=== PATIENT | male | born 1970 | race Two or more races ===

== ENCOUNTER 2017-08-23 06:35 | Emergency (ER) | payer OTHER ==
[2017-08-23] MEDS ORDERED: Ondansetron INJ* 2 MG/ML VIAL IV ONE (07:12)
[2017-08-23] MEDS ORDERED: NS 0.9% 1000 ML* 1,000 ML IV ONE ×2 (07:12→10:43)
[2017-08-23] MEDS ORDERED: Iohexol 300* (CONTRAST) 10 ML SDV IV ONE (08:12)
[2017-08-23 08:17] LABS: ABS Basophils 0 10^3/ul (0-0.2); ABS Eosinophils 0.4 10^3/ul (0-0.6); ABS Lymphocytes 1.4 10^3/ul (1.0-4.8); ABS Monocytes 0.8 10^3/ul (0-0.8); ABS Neutrophils 8.2 10^3/ul (1.5-7.7); ABS Nucleated RBC 0 10^3/ul; Eosinophil % 3.9 % (0-6); Hematocrit 45 % (42-52); Hemoglobin 15.3 g/dl (14.0-18.0); Mean Corpuscular HGB Conc 34 g/dl (31-36); Mean Corpuscular Hemoglobin 29 pg (27-31); Mean Corpuscular Volume 86 fL (80-94); Mean Platelet Volume 7.6 um3 (7.4-10.4); Nucleated Red Blood Cells % 0.1; Platelet Count 254 10^3/ul (150-450); Red Blood Count 5.19 10^6/ul (4.0-5.4); Red Cell Distribution Width 14 % (10.5-15); White Blood Count 10.9 10^3/ul (3.5-10.8)
[2017-08-23 08:35] LABS: EGFR Non-African American 75.1 (>60)
--- NOTE | 2017-08-23 08:52 | RAD ---
INDICATION: Generalized abdominal pain with nausea, vomiting, diarrhea for 2 days. Fever. COMPARISON: May 19, 2017 CT TECHNIQUE: Multidetector CT images were obtained from the lung bases to the ischial tuberosities with 93 mL Omnipaque 300 IV and oral contrast. Multiplanar reformation. REPORT: Unremarkable visualized inferior thorax. The liver, gallbladder, pancreas, and spleen are unremarkable. Negative for CT abnormality of the upper GI or small bowel. Unremarkable infra cecal appendix most conspicuous on coronal reformatted images 37-56 of 90. Enteric contrast extends to the rectum. No colonic mural thickening or perienteric inflammatory change evident. Negative for ascites, free air, hernias. Normal adrenal glands. Unremarkable kidneys with symmetric nephrograms and pyelograms. Unremarkable nondilated ureters and urinary bladder. Symmetric seminal vesicles. Negative for lymphadenopathy. Normal diameter abdominal aorta and iliac arteries with minimal atherosclerotic plaque. Incomplete distention of the IVC indicating lower volume state. Negative for suspicious osseous lesions. IMPRESSION: 1. Normal appendix documented. 2. Enteric contrast extends to the rectum. No mural thickening or perienteric inflammatory change of the alimentary tract evident. 3. Incomplete distention of the IVC indicating lower volume state.
[2017-08-23] MEDS ORDERED: Potassium Chlor TAB* 20 MEQ TAB.ER PO ONE (10:59)
[2017-08-23] MEDS ORDERED: Magnesium Oxide TAB* 400 MG PO ONE (10:59)
[2017-08-23 11:02] LABS: Urine Appearance Clear; Urine Blood 2+ (Negative); Urine Color Colorless; Urine Ketones Negative (Negative); Urine Protein Negative (Negative); Urine Specific Gravity 1.001 (1.010-1.030); Urine Urobilinogen Negative (Negative)
[2017-08-23 11:49] VITALS: BP 122/84
--- NOTE | 2017-08-23 20:56 | ED ---
Vin Lux Angela, scribed for Francisco Javier Hankins MD on 08/23/17 at 0723 . GI/ HPI - HPI Summary HPI Summary: This pt is a 47 y/o male presenting to [facility] c/o abd pain, nausea, vomiting, and diarrhea for the past 2 days. He describes diffuse abdominal pain and diarrhea as watery and nonbloody. Pt reports he did not eat anything unusual 2 days ago. He denies traveling out of the country in the last few weeks. No recent antibiotic use. Pt denies sick contacts. Denies any PMHx. - History of Current Complaint Chief Complaint: EDAbdPain Time Seen by Provider: 08/23/17 07:12 Stated Complaint: FEVER, DIARRHEA Hx Obtained From: Patient Onset/Duration: Started Days Ago, Still Present Timing: Lasting Days Current Severity: Mild Pain Intensity: 3 Location of Pain: Diffuse Associated Signs and Symptoms: Positive: Nausea, Vomiting, Diarrhea. Negative: Cough, Chest Pain Aggravating Factor(s): Nothing Alleviating Factor(s): Nothing - Allergy/Home Medications Allergies/Adverse Reactions: Allergies Allergy/AdvReac Type Severity Reaction Status Date / Time No Known Allergies Allergy Verified 01/02/14 19:37 Home Medications: Home Medications Acetaminophen TAB* [Tylenol TAB*] 325 - 650 mg PO Q6H PRN 08/23/17 [History Confirmed 08/23/17] Cholecalciferol TAB* [Vitamin D TAB*] 50,000 unit PO MONTHLY 08/23/17 [History Confirmed 08/23/17] PMH/Surg Hx/FS Hx/Imm Hx Endocrine/Hematology History: Denies: Hx Diabetes, Hx Thyroid Disease Cardiovascular History: Denies: Hx Congestive Heart Failure, Hx Hypertension, Other Cardiovascular Problems/Disorders Respiratory History: Denies: Hx Asthma, Hx Chronic Obstructive Pulmonary Disease (COPD) GI History: Denies: Hx Ulcer - Surgical History Surgery Procedure, Year, and Place: denies Infectious Disease History: No Infectious Disease History: Reports: Hx Tuberculosis Denies: Hx Hepatitis, Hx Human Immunodeficiency Virus (HIV), Traveled Outside the [place] in Last 30 Days - Family History Family History: No FHx of bowel problems - Social History Alcohol Use: None Substance Use Type: Reports: None Smoking Status (MU): Light Every Day Tobacco Smoker Type: Cigarettes Review of Systems Negative: Fever ENT: Negative Negative: Chest Pain Negative: Shortness Of Breath Positive: Abdominal Pain, Vomiting, Diarrhea, Nausea Skin: Negative Neurological: Negative All Other Systems Reviewed And Are Negative: Yes Physical Exam - Summary Physical Exam Summary: VITAL SIGNS: Reviewed. GENERAL: Patient is a well-developed and nourished male who is lying comfortable in the stretcher. Patient is not in any acute respiratory distress. HEAD AND FACE: No signs of trauma. No ecchymosis, hematomas or skull depressions. No sinus tenderness. EYES: PERRLA, EOMI x 2, No injected conjunctiva, no nystagmus. EARS: Hearing grossly intact. Ear canals and tympanic membranes are within normal limits. MOUTH: Oropharynx within normal limits. NECK: Supple, trachea is midline, no adenopathy, no JVD, no carotid bruit, no c- spine tenderness, neck with full ROM. CHEST: Symmetric, no tenderness at palpation LUNGS: Clear to auscultation bilaterally. No wheezing or crackles. CVS: Regular rate and rhythm, S1 and S2 present, no murmurs or gallops appreciated. ABDOMEN: Soft. Diffuse tenderness. No rebound or guarding. No signs of distention. No masses palpated. Bowel sounds are normal. EXTREMITIES: FROM in all major joints, no edema, no cyanosis or clubbing. NEURO: Alert and oriented x 3. No acute neurological deficits. Speech is normal and follows commands. SKIN: Dry and warm Triage Information Reviewed: Yes Vital Signs On Initial Exam: Initial Vitals Temp Pulse Resp BP Pulse Ox 98.5 F 80 16 133/88 99 08/23/17 06:38 08/23/17 06:38 08/23/17 06:38 08/23/17 06:38 08/23/17 06:38 Vital Signs Reviewed: Yes Diagnostics - Vital Signs Vital Signs Temp Pulse Resp BP Pulse Ox 08/23/17 06:38 98.5 F 80 16 133/88 99 - Laboratory Result Diagrams: 08/23/17 07:50 08/23/17 07:50 Lab Statement: Any lab studies that have been ordered have been reviewed, and results considered in the medical decision making process. - CT Abdomen/Pelvis CT Interpretation: Positive (See Comments) - IMPRESSION: 1. Normal appendix documented. 2. Enteric contrast extends to the rectum. No mural thickening or perienteric inflammatory change of the alimentary tract evident. 3. Incomplete distension of the IVC indicating lower volume state. Dr. Hanknis has reviewed this radiology report. CT Interpretation Completed By: Radiologist - EKG 07:17 Cardiac Rate: NL EKG Rhythm: Sinus Rhythm - at 80 bpm EKG Interpretation: No ST elevations. Normal axis. Re-Evaluation - Re-Evaluation First Eval Re-Evaluation Time: 11:05 Change: Improved Comment: Pt reports he is feeling better. GIGU Course/Dx - Course Assessment/Plan: This pt is a 47 y/o male presenting to [facility] c/o abd pain, nausea, vomiting, and diarrhea for the past 2 days. He describes diffuse abdominal pain and diarrhea as watery and nonbloody. Pt reports he did not eat anything unusual 2 days ago. He denies traveling out of the country in the last few weeks. No recent antibiotic use. Pt denies sick contacts. Denies any PMHx. Test results without any significant abnormalities except for WBC of 10.9, potassium of 3.3, for which the pt was given potassium chloride, magnesium of 1.8, for which the pt was given magnesium oxide, CRP of 21.08. Urinalysis is negative for UTI. Abdomen/pelvis CT shows 1. Normal appendix documented. 2. Enteric contrast extends to the rectum. No mural thickening or perienteric inflammatory change of the alimentary tract evident. 3. Incomplete distension of the IVC indicating lower volume state. In the ED course the pt was given IV fluids, Zofran for the nausea and vomiting, and after these the pt is feeling better. He is eating and drinking without nausea or vomiting. Therefore pt will be discharged home with follow up from his PCP. I discussed all the findings and test results with the patient. All questions were answered to patient satisfaction. He is instructed to return to the ED for any worsening or new symptoms. Pt is hemodynamically stable, alert and oriented x3. - Diagnoses Provider Diagnoses: Abdominal pain, Nausea, vomiting, and diarrhea Discharge - Sign-Out/Discharge Documenting (check all that apply): Discharge/Admit/Transfer - discharge to home - Discharge Plan Condition: Stable Disposition: HOME Patient Education Materials: Acute Nausea and Vomiting (ED), Acute Diarrhea (ED ), Abdominal Pain (ED) Forms: *Work Release Referrals: Ledy Santillan MD [Primary Care Provider] - 3 Days Additional Instructions: Please follow up with your primary care provider. RETURN TO THE ED FOR ANY NEW OR WORSENING SYMPTOMS. The documentation as recorded by the Vin mcrae Angela accurately reflects the service I personally performed and the decisions made by , Francisco Javier Hankins MD.
--- NOTE | 2017-08-25 08:41 | ED ---
Progress - Progress Note Progress Note: Patient's stool culture is negative for bacteria however does reveal positive immunoassay. Patient was diagnosed with nausea vomiting and diarrhea and advised to follow-up with PCP in 3 days. No change in treatment at this time. Re-Evaluation - Re-Evaluation First Eval Re-Evaluation Time: 11:05 Change: Improved Comment: Pt reports he is feeling better. Course/Dx - Diagnoses Provider Diagnoses: Abdominal pain, Nausea, vomiting, and diarrhea Discharge - Sign-Out/Discharge Documenting (check all that apply): Discharge/Admit/Transfer - Discharge Plan Condition: Stable Disposition: HOME Patient Education Materials: Acute Nausea and Vomiting (ED), Acute Diarrhea (ED ), Abdominal Pain (ED) Forms: *Work Release Referrals: Ledy Santillan MD [Primary Care Provider] - 3 Days Additional Instructions: Please follow up with your primary care provider. RETURN TO THE ED FOR ANY NEW OR WORSENING SYMPTOMS. - Billing Disposition and Condition Condition: STABLE Disposition: HOME
== END 2017-08-23 11:48 | disposition home or self-care (01) ==
LOC: ED 06:35
DX: R10.84 Generalized abdominal pain (principal); R11.2 Nausea with vomiting, unspecified; R19.7 Diarrhea, unspecified; Z86.11 Personal history of tuberculosis; F17.210 Nicotine dependence, cigarettes, uncomplicated
CPT/HCPCS: 36415; 74177; 80053; 81003; 81015; 83605; 83630; 83690; 83735; 85025; 86140; 87045; 87046; 87077; 87493; 87899; 93005; 96361; 96374; 99283; A9270-GY; J2405; Q9967

== ENCOUNTER 2018-07-24 17:40 | Emergency (ER) | payer OTHER ==
[2018-07-24 18:57] VITALS: BP 130/89
--- NOTE | 2018-07-24 18:59 | UC ---
Skin Complaint HPI - HPI Summary HPI Summary: 48 yo male presents with itchy rash to b/l lower legs that first appeared last night and is worsening today. 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 Last night noticed some red spots and itching to his b/l lower legs. Today the redness spread and was more itchy. He has not taken anything OTC or applied any creams. He denies recent illness, fever, swelling of face/lips/tongue/throat, difficulty breathing, or new clothing/lotions/detergents. - History of Current Complaint Chief Complaint: UCRash Time Seen by Provider: 07/24/18 18:59 Stated Complaint: RASH Hx Obtained From: Patient Onset/Duration: Sudden Onset Onset Severity: Mild Current Severity: Moderate Pain Intensity: 5 Pain Scale Used: 0-10 Numeric - Allergy/Home Medications Allergies/Adverse Reactions: Allergies Allergy/AdvReac Type Severity Reaction Status Date / Time No Known Allergies Allergy Verified 07/24/18 18:57 Home Medications: Home Medications Cholecalciferol TAB* [Vitamin D TAB*] 400 unit PO DAILY 07/24/18 [History Confirmed 07/24/18] PMH/Surg Hx/FS Hx/Imm Hx - Additional Past Medical History Additional PMH: None - Surgical History Surgical History: None Surgery Procedure, Year, and Place: denies - Family History Known Family History: Positive: None Family History: No FHx of bowel problems - Social History Occupation: Employed Full-time Lives: With Family Alcohol Use: None Substance Use Type: None Smoking Status (MU): Former Smoker Type: Cigarettes - Immunization History Most Recent Influenza Vaccination: Unsure Most Recent Tetanus Shot: pt is unsure Most Recent Pneumonia Vaccination: Never Review of Systems All Other Systems Reviewed And Are Negative: Yes Constitutional: Positive: Negative Skin: Positive: Rash ENT: Positive: Negative Respiratory: Positive: Negative Cardiovascular: Positive: Negative Gastrointestinal: Positive: Negative Neurovascular: Positive: Negative Musculoskeletal: Positive: Negative Psychological: Positive: Negative Physical Exam - Summary Physical Exam Summary: GENERAL: NAD. WDWN. No pain distress. SKIN: B/L lower legs with mildly erythematous contact dermatitis. No pustules, blistering, open wounds, edema, or warmth. No streaking, bleeding, or drainage. NECK: Supple. Nontender. No lymphadenopathy. CHEST: No accessory muscle use. Breathing comfortably and in no distress. CV: Pulses intact. Cap refill <2seconds NEURO: Alert. PSYCH: Age appropriate behavior. Triage Information Reviewed: Yes Vital Signs: Initial Vital Signs Temp 99.0 F 07/24/18 18:53 Pulse 76 07/24/18 18:53 Resp 18 07/24/18 18:53 BP 130/89 07/24/18 18:53 Pulse Ox 100 07/24/18 18:53 Vital Signs Reviewed: Yes Course/Dx - Course Course Of Treatment: Suspect contact dermatitis. Rx for prednisone and kenalog cream. Advised to f/u if symptoms do not improve. - Diagnoses Provider Diagnosis: Contact dermatitis Discharge - Sign-Out/Discharge Documenting (check all that apply): Patient Departure All imaging exams completed and their final reports reviewed: No Studies - Discharge Plan Condition: Stable Disposition: HOME Prescriptions: predniSONE TAB* [Deltasone 20 MG TAB*] 20 mg PO DAILY #14 tab Triamcinolone 0.1% CREAM(NF) [Kenalog Cream 0.1%(NF)] 1 applic TOPICAL BID #1 tube Patient Education Materials: Contact Dermatitis (ED) Referrals: Ledy Santillan MD [Primary Care Provider] - Additional Instructions: If you develop a fever, shortness of breath, chest pain, new or worsening symptoms - please call your PCP or go to the ED. Your blood pressure was mildly elevated at todays visit. Please see your primary provider within 4 weeks for recheck and re-evaluation. - Billing Disposition and Condition Condition: STABLE Disposition: Home
== END 2018-07-24 19:00 | disposition home or self-care (01) ==
LOC: UCEAST 17:40
DX: L25.9 Unspecified contact dermatitis, unspecified cause (principal); Z87.891 Personal history of nicotine dependence
CPT/HCPCS: 99212; G0463

== ENCOUNTER 2018-12-05 17:20 | Emergency (ER) | payer OTHER ==
[2018-12-05 17:32] VITALS: BP 131/88
--- NOTE | 2018-12-05 17:50 | UC ---
Dental HPI - HPI Summary HPI Summary: 48 yo male with slightly tender /firm lower lip mass x 10 days no trauma not expanding in size - History of Current Complaint Chief Complaint: UCSkin Stated Complaint: MOUTH COMPLAINT Time Seen by Provider: 12/05/18 17:40 Hx Obtained From: Patient Onset/Duration: Sudden Onset, Lasting Days Severity: Mild Pain Intensity: 1 Pain Scale Used: 0-10 Numeric Aggravating Factor(s): Nothing - except touching Alleviating Factor(s): Nothing Related History: Swelling Dental: 1 - palpable/slight nodular lesion - Allergies/Home Medications Allergies/Adverse Reactions: Allergies Allergy/AdvReac Type Severity Reaction Status Date / Time No Known Allergies Allergy Verified 12/05/18 17:32 PMH/Surg Hx/FS Hx/Imm Hx Previously Healthy: Yes - Surgical History Surgical History: None Surgery Procedure, Year, and Place: denies - Family History Known Family History: Positive: None, Non-Contributory Family History: No FHx of bowel problems - Social History Alcohol Use: None Substance Use Type: None Smoking Status (MU): Former Smoker Type: Cigarettes - Immunization History Most Recent Influenza Vaccination: Unsure Most Recent Tetanus Shot: pt is unsure Most Recent Pneumonia Vaccination: Never Review of Systems All Other Systems Reviewed And Are Negative: Yes Constitutional: Positive: Negative Skin: Positive: Negative Eyes: Positive: Negative ENT: Positive: Negative Respiratory: Positive: Negative Cardiovascular: Positive: Negative Gastrointestinal: Positive: Negative Genitourinary: Positive: Negative Motor: Positive: Negative Neurovascular: Positive: Negative Musculoskeletal: Positive: Negative Neurological: Positive: Negative Psychological: Positive: Negative Physical Exam Triage Information Reviewed: Yes Appearance: Well-Appearing, No Pain Distress, Well-Nourished Vital Signs: Initial Vital Signs Temp 100 F 12/05/18 17:27 Pulse 82 12/05/18 17:27 Resp 16 12/05/18 17:27 BP 131/88 12/05/18 17:27 Pulse Ox 98 12/05/18 17:27 Vital Signs Reviewed: Yes Eyes: Positive: Conjunctiva Clear ENT: Positive: Hearing grossly normal. Negative: Nasal congestion, Nasal drainage, Trismus, Muffled voice, Hoarse voice Dental Exam: Normal Neck: Positive: Supple, Nontender, No Lymphadenopathy Respiratory: Positive: Lungs clear, Normal breath sounds, No respiratory distress, No accessory muscle use Cardiovascular: Positive: RRR, No Murmur, Pulses Normal Musculoskeletal: Positive: ROM Intact, No Edema Neurological: Positive: Alert Psychological Exam: Normal Skin Exam: Other - normal except left lower lip lesion Dental Complaint Course/Dx - Differential Dx/Diagnosis Provider Diagnosis: Lesion of lip Discharge - Sign-Out/Discharge Documenting (check all that apply): Patient Departure All imaging exams completed and their final reports reviewed: No Studies - Discharge Plan Condition: Stable Disposition: HOME Referrals: Narendra Mcgraw MD [Doctor of Dental Medicine] - 1 Week Additional Instructions: I am not sure of the cause of your lip lesion I suggest you see an oral surgeon If you have trouble making an appointment let us know - Billing Disposition and Condition Condition: STABLE Disposition: Home
== END 2018-12-05 17:55 | disposition home or self-care (01) ==
LOC: UCEAST 17:20
DX: K13.0 Diseases of lips (principal); Z87.891 Personal history of nicotine dependence
CPT/HCPCS: 99211; G0463